=== PATIENT | male | born 1975 | race Two or more races ===

== ENCOUNTER 2017-05-27 04:46 | Emergency (ER) | payer SELFPAY | END 2017-05-27 05:45 | disposition home or self-care (01) | LOC: D.ER 04:46 | DX: S63.502A Unspecified sprain of left wrist, initial encounter (principal); W01.0XXA Fall on same level from slipping, tripping and stumbling without subsequent striking against object, initial encounter; Y93.89 Activity, other specified; Y92.89 Other specified places as the place of occurrence of the external cause; S93.402A Sprain of unspecified ligament of left ankle, initial encounter ==

== ENCOUNTER 2017-12-26 04:30 | Emergency (ER) | payer SELFPAY | END 2017-12-26 05:21 | disposition home or self-care (01) | LOC: D.ER 04:30 | DX: J20.9 Acute bronchitis, unspecified (principal); F17.200 Nicotine dependence, unspecified, uncomplicated ==